=== PATIENT | female | born 1975 | race Caucasian/White ===

== ENCOUNTER → 2023-09-29 00:19 | Outpatient (CLI) | payer BC, SELFPAY ==
--- NOTE | 2023-09-29 06:45 | DI.MAMMO_ITS ---
Exam(s) MAMMO SCREENING EXAM: MAMMO SCREENING CLINICAL HISTORY: screening,Z12.39 TECHNIQUE: Bilateral full field digital CC and MLO mammographic images were obtained with 3D tomosyn thesis and utilizing computer aided detection (CAD). COMPARISON: This is a baseline examination. FINDINGS: Masses/Architectural Distortion: None seen. Microcalcifications: No suspicious pleomorphic-type are seen. Skin Thickening/Nipple Retraction: None. IMPRESSION: 1. No specific features of malignancy noted. 2. Unless there is more urgent need, screening mammography is recommended, as per [employer] guidelines. BI-RADS Category 1 - Negative Breast Density - Category C - Heterogeneously dense Breast density category C or D implies that the patient has dense breast tissue. Dense breast tissue is very common and is not abnormal but dense breast tissue can make it harder to find cancer on a ma mmogram. Also, dense breast tissue may increase their breast cancer risk. This information about the result of the mammogram report was provided to the patient to raise their awareness. Use this report when you speak with the patient about their risks for breast cancer, which includes their family hist ory. At that time, you may recommend for more screening tests (Ultrasound or MRI) as they might be us eful based on their risk. A negative radiographic report should not delay biopsy if a dominant or clinically suspicious mass is present. Up to ten percent of cancers are not identified on mammography. A negative report may reinforce clinical impression. Adenosis and dense breasts may obscure an underlying neoplasm. False positive reports average 6 to 10%. Patient will receive a letter notifying them of these results.
== END ==
PROVIDERS: PCP Student in an Organized Health Care Education/Training Program; Visit Provider Student in an Organized Health Care Education/Training Program
DX: Z12.31 Encounter for screening mammogram for malignant neoplasm of breast (principal)
CPT/HCPCS: 77063; 77067

== ENCOUNTER 2023-10-13 01:56 | Outpatient (CLI) | payer BC, SELFPAY ==
[2023-10-13 10:37] LABS: HCT 37.7 % (36.0-46.0); HGB 12.7 g/dL (11.2-15.7); MCH 29.7 pg (27.0-33.0); MCHC 33.7 % (32.0-36.0); MCV 88 fL (80-95); MPV 9.5 fL (8.0-11.0); Platelet Count 309 10^3/uL (130-400); RBC 4.28 10^6/uL (3.93-5.22); RDW 12.4 % (11.7-14.6); RDW-SD 40.2 fL; WBC 6.38 10^3/uL (4.4-10.8)
[2023-10-13 11:07] LABS: ALT 96 U/L (14-59); AST 44 U/L (15-37); Albumin 3.6 g/dL (3.4-5.0); Alkaline Phosphatase 81 U/L (46-116); Anion Gap 8.7 mmol/L (3-11); BUN 12 mg/dL (7-18); Bilirubin, Total 0.3 mg/dL (0.2-1.0); CO2 27.3 mmol/L (21.0-32.0); CREATININE 0.8 mg/dL (0.55-1.02); Calcium 9.1 mg/dL (8.5-10.1); Calculated LDL 95 mg/dL (<100); Chloride 107 mmol/L (98-107); Cholesterol 180 mg/dL (<200); Estimated GFR 91.97 (mL/min/1.73m2); Glucose 88 mg/dL (74-106); HDL Cholesterol 39 mg/dL (40-60); Potassium 3.8 mmol/L (3.5-5.1); Sodium 143 mmol/L (136-145); Total Protein 7.2 g/dL (6.4-8.2); Triglyceride 230 mg/dL (<150)
[2023-10-13 11:28] LABS: Vitamin D 25 Total 15.6 ng/mL (30-100)
== END 2023-10-13 01:57 | disposition home or self-care (01) ==
LOC: LBO 01:57
PROVIDERS: PCP Student in an Organized Health Care Education/Training Program; Visit Provider Student in an Organized Health Care Education/Training Program
DX: Z86.2 Personal history of diseases of the blood and blood-forming organs and certain disorders involving the immune mechanism (principal); Z13.1 Encounter for screening for diabetes mellitus; Z86.19 Personal history of other infectious and parasitic diseases; K76.9 Liver disease, unspecified; R16.0 Hepatomegaly, not elsewhere classified; Z87.898 Personal history of other specified conditions; Z13.220 Encounter for screening for lipoid disorders
CPT/HCPCS: 36415; 80053; 80061; 82306; 85027

== ENCOUNTER 2025-03-27 16:16 | Outpatient (CLI) | payer BC, SELFPAY ==
[2025-03-27 16:00] LABS: ALT 61 U/L (14-59); AST 33 U/L (15-37); Albumin 4.2 g/dL (3.4-5.0); Alkaline Phosphatase 71 U/L (46-116); Anion Gap 11.7 mmol/L (3-11); BUN 15 mg/dL (7-18); Bilirubin, Direct 0.1 mg/dL (0.0-0.2); Bilirubin, Total 0.3 mg/dL (0.2-1.0); CO2 25.3 mmol/L (21.0-32.0); Calcium 9.5 mg/dL (8.5-10.1); Chloride 104 mmol/L (98-107); Estimated GFR 107.28 (mL/min/1.73m2); Glucose 91 mg/dL (74-106); Potassium 3.8 mmol/L (3.5-5.1); Sodium 141 mmol/L (136-145); TSH 1.02 uIU/mL (0.36-3.74); Total Protein 7.9 g/dL (6.4-8.2)
[2025-03-27 16:54] LABS: Hemoglobin A1C 5.3 % (<5.7)
[2025-03-28 20:19] LABS: HBs Antibody, Qual Negative (See Note); HBs Antibody, Quant 4.0 mIU/mL (See Note); Hepatitis C Ab w Rflx HCV PCR Negative (Negative)
[2025-04-01 14:47] LABS: Apolipoprotein B, Serum 117 mg/dL (48-124); Beta VLDL Cholesterol Not Detected mg/dL (<15); Beta VLDL Triglycerides Not Detected mg/dL (<15); Cholesterol, Total, CDC 233 mg/dL; Chylomicron Cholesterol Not Detected; Chylomicron Triglycerides Not Detected; HDL Cholesterol, CDC 52 mg/dL (>=50); LpX Not detected; Triglycerides, CDC 237 mg/dL; VLDL Triglycerides 142 mg/dL (<120)
== END 2025-03-27 16:17 | disposition home or self-care (01) ==
LOC: LBO 16:17
PROVIDERS: PCP Student in an Organized Health Care Education/Training Program; Visit Provider Family Medicine
DX: R79.89 Other specified abnormal findings of blood chemistry (principal); R53.83 Other fatigue; E78.5 Hyperlipidemia, unspecified; Z13.9 Encounter for screening, unspecified
CPT/HCPCS: 36415; 80053; 80061; 80076; 86704; 86706; 86803; 87340; 82172; 82664; 83036; 84443

== ENCOUNTER 2025-04-11 05:33 | Outpatient (CLI) | payer BC, SELFPAY ==
--- NOTE | 2025-04-11 07:47 | DI.MAMMO_ITS ---
Exam(s) MAMMO SCREENING EXAM: MAMMO SCREENING CLINICAL HISTORY: screening, Z12.39 TECHNIQUE: Mammograms were interpreted according to the usual protocol including computer analysis with CAD system, tomosynthesis and C-view imaging. COMPARISON: 2023 FINDINGS: The breasts are composed of scattered fibroglandular densities, Breast Density category B. No suspicious microcalcifications are seen in either breast. In the lower inner quadrant of the left breast, in the anterior tissue there is a 10 millimeter nodule which was not seen previously. Spot compression views and ultrasound are requested for further evaluation. No skin thickening or abnormal axillary lymph nodes are seen. There has been no significant change in the right breast from prior exams. IMPRESSION: Left breast: BI-RADS Category 0 - Incomplete: Need additional imaging evaluation Right breast: Yearly screening mammography is recommended. Breast Density - Category B - There are scattered areas of fibroglandular density. Breast density Category C or D implies that the patient has dense breast tissue. Dense breast tissue can make it harder to find cancer on a mammogram. Dense breast tissue is also associated with an increased risk of breast cancer. This information about the result of the mammogram report was provided to the patient to raise their awareness. Use this report when you speak with the patient about their risks for breast cancer, which includes their family history. At that time, you may recommend additional screening tests (Ultrasound or MRI) as these tests may add significant information. A negative radiographic report should not delay biopsy if a dominant or clinically suspicious mass is present. Up to ten percent of cancers are not identified on mammography. A negative report may reinforce clinical impression. Adenosis and dense breasts may obscure an underlying neoplasm. False positive reports average 6 to 10%. Patient will receive a letter notifying them of these results.
== END 2025-04-11 05:53 ==
LOC: DI 05:33
PROVIDERS: PCP Student in an Organized Health Care Education/Training Program; Visit Provider Family Medicine
DX: Z12.31 Encounter for screening mammogram for malignant neoplasm of breast (principal); R92.323 Mammographic fibroglandular density, bilateral breasts
CPT/HCPCS: 77063; 77067

== ENCOUNTER 2025-04-24 04:17 | Outpatient (CLI) | payer BC, SELFPAY ==
--- NOTE | 2025-04-24 | DI.US_ITS ---
Exam(s) MG MAMMO SCREEN CALL BACK UNI US BREAST LT COMPLETE EXAM: MG MAMMO SCREEN CALL BACK UNI and U/S breast LT complete CLINICAL HISTORY: ANTERIOR TISSUE LT BREAST 10MM NODULE R92.8 ABNL MAMMO. TECHNIQUE: Craniocaudal and mediolateral oblique Full Field Digital Mammography views of the left breast with Computer Aided Diagnosis followed by Tomosynthesis and complete left breast ultrasound. All 4 quadrants of the left breast, the left axilla and left retroareolar region were evaluated sonographically. COMPARISON: Comparison is made with prior examinations. FINDINGS: Mammography/Tomosynthesis: Masses/Architectural Distortion: There is again seen a 1 cm well-circumscribed nodule in the lower inner quadrant of the left breast. There are no areas of architectural distortion present. Microcalcifictions: No suspicious pleomorphic-type are seen. Skin Thickening/Nipple Retraction: None. Complete left breast US: Echotexture: Normal appearance of the glandular tissue. Shadowing: No suspicious foci. Cyst: Multiple cysts are seen scattered throughout the breast. At the 8 o'clock position of the left breast 5 cm from the nipple there is a 0.9 x 0.7 x 1.0 cm cyst which would correspond to the mammographic abnormality. Solid lesions: None seen. Ductal dilation: None. IMPRESSION: 1. No evidence of malignancy is noted. The mammographic abnormality corresponds to a simple cyst at the 8 o'clock position. 2. Unless there is more urgent need, follow-up screening mammography is recommended, as per [place] guidelines. 3. The findings were discussed with the patient on the date of the examination. BI-RADS Category 2 - Benign Findings Breast Density - Category B - There are scattered areas of fibroglandular density. Breast density Category C or D implies that the patient has dense breast tissue. Dense breast tissue can make it harder to find cancer on a mammogram. Dense breast tissue is also associated with an increased risk of breast cancer. This information about the result of the mammogram report was provided to the patient to raise their awareness. Use this report when you speak with the patient about their risks for breast cancer, which includes their family history. At that time, you may recommend additional screening tests (Ultrasound or MRI) as these tests may add significant information. A negative radiographic report should not delay biopsy if a dominant or clinically suspicious mass is present. Up to ten percent of cancers are not identified on mammography. A negative report may reinforce clinical impression. Adenosis and dense breasts may obscure an underlying neoplasm. False positive reports average 6 to 10%. Patient will receive a letter notifying them of these results.
== END 2025-04-24 04:37 ==
PROVIDERS: PCP Family Medicine; Visit Provider Family Medicine
DX: Z12.31 Encounter for screening mammogram for malignant neoplasm of breast (principal)
CPT/HCPCS: 76642; 77063; 77067

== ENCOUNTER 2025-06-18 06:13 | Day surgery (SDC) | payer BC, SELFPAY ==
[2025-06-18 06:20] VITALS: BP 123/88; PULSE 98; RESP 16; TEMP 36.4; O2SAT 97
[2025-06-18] MEDS: Lactated Ringers 1,000 ML 80 ML IV (07:00)
--- NOTE | 2025-06-18 07:01 | W.ANESPRE ---
General Info Date of Service Date Performed: 06/18/25 Height: 5 ft 3 in Weight: 82 kg Body Mass Index (BMI): 32.0 Surgical Procedure: Operation Date: 06/18/25 07:35 Proposed Procedure Side Surgeon p Colonoscopy Francie Galvan MD Meds Allergies and Home Medications Allergies Allergy/AdvReac Type Severity Reaction Status Date / Time No Known Allergies Allergy Verified 06/18/25 06:39 Home Medication Medication Instructions Recorded cholecalciferol (vitamin D3) 1,250 1,250 mcg PO QWEEK #10 caps 03/27/25 mcg (50,000 unit) capsule krill oil 500 mg capsule 500 mg PO DAILY #90 caps 03/27/25 atorvastatin 20 mg tablet (Lipitor) 20 mg PO QPM #90 tabs 04/03/25 bisacodyl 5 mg tablet,delayed 5 mg PO ONCE colonscopy bowel prep 05/05/25 release (Dulcolax (bisacodyl)) #4 tabs polyethylene glycol 3350 17 238 g PO ONCE colonoscopy prep 05/05/25 gram/dose oral powder #238 grams Current Visit Medications: Current Medications Generic Name Dose Route Start Last Admin Trade Name Freq PRN Reason Stop Dose Admin Ringer's Solution 1,000 mls @ 80 mls/hr 06/18/25 06:00 IV 06/18/25 23:59 INFUSION DAWOOD IV Miscellaneous Supplies 1 each 06/18/25 06:00 Iv Access IV 06/18/25 23:59 DIRECTED DAWOOD Sodium Chloride 0 ml 06/18/25 06:00 Normal Saline Flush 10 Ml Syr IV 06/18/25 23:59 PRN PRN Sodium Chloride 0 ml 06/18/25 06:00 Normal Saline 10 Ml Vial IJ 06/18/25 23:59 DIRECTED PRN Sterile Water 0 ml 06/18/25 06:00 Water,Injection,Sterile 10 Ml Vial IJ 06/18/25 23:59 DIRECTED PRN PFSH Active Problems Active Problems: Problem Status Onset Code Breast nodule Acute N63.0 Inclusion cyst Acute L72.0 Obesity (BMI 30.0-34.9) Acute E66.811 Fatigue Acute R53.83 Hyperlipidemia Acute E78.5 Low vitamin D level Acute R79.89 Low HDL (under 40) Acute E78.6 Elevated liver function tests Acute R79.89 Family history of ovarian cancer Acute Z80.41 Medical History Medical History History of hepatomegaly Secondary to mono History of mononucleosis Hx of iron deficiency anemia Surgical History Surgical History H/O wisdom tooth extraction Tobacco Smoking/Tobacco Use Status: Never Alcohol Alcohol Intake: current Alcohol intake frequency: a few times a week Substance Use Substance use: Never Vital Signs and Lab Results Vital Signs Most Recent Vital Signs in EMR: Most Recent Vital Signs Temp Pulse Resp BP Pulse Ox 36.4 C L 98 H 16 123/88 97 06/18/25 06:20 06/18/25 06:20 06/18/25 06:20 06/18/25 06:20 06/18/25 06:20 Point of Care Results Point of Care Results: POC- Test(urine) Negative 06/18/25 06:47 Anesthesia Assessment and Plan Anesthesia History Personal History: No History of Anesthesia Complications Family History: No Family History of Anesthesia Complications Exercise Tolerance Exercise Tolerance: Metabolic Equivalents>4 Pertinent Negatives Pertinent Negatives: No Symptoms of GERD, No Major Cardiovascular Symptoms or Complaints and No Major Pulmonary Symptoms or Complaints Cardiac & Pulmonary Exam Cardiac Exam: Normal S1/S2 Heart Sounds Pulmonary Exam: Clear Bilateral Breath Sounds Implantable Cardiac Device Does patient have a Pacemaker or an ICD?: No Airway Exam Known Difficult Airway: No Mallampati Class: 1 Mouth Opening: Normal (> 3cm) Thyromental Distance: Greater than 3 cm Neck Range of Motion: Full ROM Neck Circumference: Normal Teeth Condition: Normal Dentition ASA Classification ASA Score: ASA 2 Emergency Case?: No NPO Status NPO Status: NPO Clears >2 hours, Solids >8 hours Status Status: Negative HCG Anesthesia Plan Resuscitation Status: Full Code Anesthesia Technique: General Anesthesia Airway Planned: Natural Airway Monitors Used: Standard Monitors
[2025-06-18 07:03] VITALS: BMI 32.0
--- NOTE | 2025-06-18 07:26 | W.PM.HP.N ---
Date of service: 06/18/25 Time of Service: 07:27 Assessment and Plan Assessment and plan (1) Encounter for screening colonoscopy: Status: Acute Assessment and plan: Patient is a 49 yo female who presents for her first screening colonoscopy. She has no family history of colon cancer. She denies any major changes in her health. The procedure as well as the risks and benefits were discussed with her and consent was obtained prior to the procedure. Plan for screening colonoscopy. History of Present Illness Narrative: Patient is a 49 yo female who presents for a screening colonoscopy. She has no family history of colon cancer. She denies any recent changes in her health since she was last seen in clinic. Review of Systems Cardiovascular Cardiovascular: Denies chest pain and Denies dyspnea Respiratory Respiratory: Denies dyspnea Gastrointestinal Gastrointestinal: Denies abdominal pain, Denies nausea and Denies vomiting PFSH All Active Problems (Updated 06/18/25 @ 07:28 by Francie Galvan MD) Encounter for screening colonoscopy (Acute) Breast nodule (Acute) left inner lower quadrant Inclusion cyst (Acute) Obesity (BMI 30.0-34.9) (Acute) Fatigue (Acute) Hyperlipidemia (Acute) Low vitamin D level (Acute) Low HDL (under 40) (Acute) Elevated liver function tests (Acute) mild, 10/2023 labs Family history of ovarian cancer (Acute) Mo, survivor and w/ neg genetics requiring children to FU (per pt report) Medical History (Updated 06/18/25 @ 07:28 by Francie Galvan MD) History of hepatomegaly Secondary to mono History of mononucleosis Hx of iron deficiency anemia Surgical History H/O wisdom tooth extraction Family History (Updated 03/27/25 @ 13:57 by Pavithra Ureña RN) Mother Cancer ovarian, lung & pancreatic Maternal Grandmother Osteoporosis Sister Anxiety slight Social History (Updated 08/24/23 @ 11:50 by Keira Villagran) Smoking/Tobacco Use Status: Never Smoking risk assessment performed?: Yes Alcohol Intake: current Alcohol Intake frequency: a few times a week Drug use: Never Substance use type: does not use Adopted: No Caregiver/Support person: No Foster care: No Household members: spouse and children Housing: house Number of Children: 2 number of grandchildren: 0 Education Level: college Do you need help understanding health information?: Never current occupation: Intake Coordinator of a [employer] Pets and animals: Yes (2) Pets and animals: cat(s) Sexually active: Yes Do you think of yourself as: straight/heterosexual Current gender identity: female What is your relationship status?: How often do you talk on the phone with friends or family?: three or more times per week How often do you get together with friends or relatives?: twice per week Do you belong to any clubs or organized social groups?: yes Panel score (0-1 are the most socially isolated patients): 3 What type of physical activity do you participate in: assisted ambulation and additional Details: Cardio Duration: 15-30 minutes/day Frequency: 3-4 times per week Jacqueline/Synagogue: None Special jacqueline needs: No Seatbelt use: always Helmet use: Yes Drive intox or ride w/intox ambulette driver: No Do you feel safe at home: Yes Do you feel safe in your relationship?: Yes Meds Allergies and Home Medications Allergies Allergy/AdvReac Type Severity Reaction Status Date / Time No Known Allergies Allergy Verified 06/18/25 06:39 Home Medications Medication Instructions Recorded Confirmed Type cholecalciferol (vitamin D3) 1,250 1,250 mcg PO QWEEK #10 caps 03/27/25 06/18/25 Rx mcg (50,000 unit) capsule krill oil 500 mg capsule 500 mg PO DAILY #90 caps 03/27/25 06/18/25 Rx atorvastatin 20 mg tablet (Lipitor) 20 mg PO QPM #90 tabs 04/03/25 06/18/25 Rx bisacodyl 5 mg tablet,delayed 5 mg PO ONCE colonscopy bowel prep 05/05/25 06/18/25 Rx release (Dulcolax (bisacodyl)) #4 tabs polyethylene glycol 3350 17 238 g PO ONCE colonoscopy prep 05/05/25 06/18/25 Rx gram/dose oral powder #238 grams Exam Narrative Exam Narrative: General: Well appearing, no acute distress. Skin: Good turgor, no visible rashes or lesion HEENT: Normocephalic, atraumatic CV: Regular rate Lungs: Bilateral equal chest rise, non-labored breathing Abdomen: Non-distended Extremities: Warm, well perfused Neurologic: No focal deficits Psychiatric: Alert and oriented, normal mood and affect Results Last Vital Signs Temp 36.4 C L 06/18/25 06:20 Pulse 98 H 06/18/25 06:20 Resp 16 06/18/25 06:20 BP 123/88 06/18/25 06:20 Pulse Ox 97 06/18/25 06:20 Time Spent Time spent with Patient: <40 minutes Time was spent: preparing to see the patient(eg.review tests), obtaining and/or reviewing separately otained hiistory and counseling the patient
--- NOTE | 2025-06-18 07:59 | W.PM.DSUDISC ---
Date of service: 06/18/25 Discharge Plan Disposition Patient Disposition: Home Condition: Good Discharge Details Reason For Visit: Screening colonoscopy Attending Provider: Francie Galvan Primary Care Provider: Nerieda Murray Home Meds and New Rx's Prescriptions: Continued cholecalciferol (vitamin D3) 1,250 mcg (50,000 unit) capsule 1,250 mcg PO QWEEK Qty: 10 0RF Rx Instructions: recheck in ~ 12 weeks or @ annual krill oil 500 mg capsule 500 mg PO DAILY Qty: 90 3RF atorvastatin [Lipitor] 20 mg tablet 20 mg PO QPM Qty: 90 3RF Discontinued bisacodyl [Dulcolax (bisacodyl)] 5 mg tablet,delayed release (DR/EC) 5 mg PO ONCE Qty: 4 0RF Rx Instructions: take per colonoscopy instructions polyethylene glycol 3350 17 gram/dose powder 238 g PO ONCE Qty: 238 0RF Rx Instructions: take per colonoscopy instructions Discharge Instructions Additional Instructions: Your colonoscopy went well. You did not have any polyps and the colon appeared normal. The recommendation would be to have another colonoscopy in 10 yrs. Please contact the general surgery office if you have questions or concerns. 1. If tolerated, consume a soft, low fiber diet for 1-2 days. 2[address] Do not drive, drink alcohol, operate machinery, make critical decisions, or do activities that require coordination or balance for 24 hours. 3. Because air was put into your colon during the procedure, expelling air from your rectum (passing gas or farting) is normal. 4. You may not have a bowel movement for 1-3 days because of the colonoscopy prep. This is normal. 5. Go directly to the emergency room if you notice any of the following: Develop chills (warm to touch), or if you have a thermometer and your temperature is above 101 Difficulty breathing or difficultly swallowing Persistent vomiting Severe abdominal pain, other than gas cramps Severe chest pain Black, tarry stools Any bleeding – exceeding one tablespoon 6. Call your physician if the site where your intravenous was started becomes red, swollen, painful, and warm to touch. 7. Your physician has reviewed your pre-procedure medications. Please continue to take those medications as previously ordered. You will be given specific information/education regarding any changes to your medications before leaving. Stand Alone Forms: Anesthesia Discharge Inst., Luz Velazco ([facility]), Portal Information Activity:: Activity as Tolerated Diet:: As Tolerated Discharge Orders Discharge Orders: Discharge Order (Routine); Ordered 06/18/25 Ordered By: Francie Galvan DS: Diagnosis Discharge Diagnosis (1) Encounter for screening colonoscopy: Status: Acute
[2025-06-18 08:01] VITALS: BP 115/75; PULSE 74; RESP 16; TEMP 36.1; O2SAT 100
--- NOTE | 2025-06-18 08:02 | W.COLOREPORT ---
Date of service: 06/18/25 Time of Service: 08:02 Colonoscopy Report Date of procedure: 06/18/25 Pre-op diagnosis general: Screening colonoscopy Post-op diagnosis procedure note: same Procedure: Colonoscopy Surgeon: Francie Galvan Anesthesia Type: General:No Airway Estimated blood loss (mL): 0 Pathology: none sent Complications: None Disposition: PACU Indications: Patient is a 49yo female who presents for her first screening colonoscopy. She denies any family history of colon cancer. Prep: Miralax/Dulcolax Procedure Start Time: 07:39 Procedure End Time: 07:55 Retraction Time: 12 Findings: Normal colonoscopy. Evidence of internal hemorrhoids. Procedure Description: Informed consent was obtained. The patient was taken to the endoscopy suite and placed in the left lateral decubitus position. After adequate intravenous sedation, digital rectal exam was performed, which was normal. A colonoscope was inserted into the rectum and easily negotiated to the cecum. The ileocecal valve and appendiceal orifice were identified. The entire colonic mucosa was then carefully circumferentially inspected upon slow withdrawal of the scope. The entire colon appeared normal. Retroflexion in the rectum was significant for internal hemorrhoids. The patient tolerated the procedure well with no complications. Postoperatively, the patient was transferred to the recovery room in stable condition. [place] Bowel Prep [place] Bowel Prep Right Colon: 3 Left Colon: 3 Transverse Colon: 3 Total Score: 9
--- NOTE | 2025-06-18 08:08 | W.ANESPOSTOP ---
Postoperative Evaluation Date, Time and Location Date Performed: 06/18/25 Time Performed: 08:08 Patient Location: Day Surgery Unit Vital Signs Most Recent Imported Vital Signs: Most Recent Vital Signs Temp Pulse Resp BP Pulse Ox 36.1 C L 74 16 115/75 100 06/18/25 08:01 06/18/25 08:01 06/18/25 08:01 06/18/25 08:01 06/18/25 08:01 Pain Score Most Recent Pain Score: Most Recent Pain Score Pain Level 0 06/18/25 08:01 Assessment Mental Status: Awake (Alert & Oriented to Patient Baseline) Airway and Respiratory Function: Patent airway with normal (patient baseline) respiratory exam Cardiovascular Function: Hemodynamically Stable Hydration Status: Adequately Hydrated Nausea & Vomiting: No Nausea or Vomiting Pain: Pt. Denies Any Pain Peripheral Nerve Block: Patient did not receive a nerve block
[2025-06-18 08:20] VITALS: BP 119/82; PULSE 75; RESP 16; TEMP 36.5; O2SAT 99
== END 2025-06-18 08:32 | disposition home or self-care (01) ==
PROVIDERS: PCP Student in an Organized Health Care Education/Training Program; Visit Provider Student in an Organized Health Care Education/Training Program
PROC: 0DJD8ZZ Inspection of Lower Intestinal Tract, Via Natural or Artificial Opening Endoscopic (ICD-10-PCS; CPT 45378; principal; 2025-06-18 07:30)
DX: Z12.11 Encounter for screening for malignant neoplasm of colon (principal); K64.8 Other hemorrhoids
CPT/HCPCS: 45378; 81025; J2003; J2704